=== PATIENT | female | born 1955 | race Caucasian/White ===

== ENCOUNTER 2025-04-22 09:23 | Emergency (ER) | payer OTHER ==
--- OUTSIDE RECORDS SUMMARY | 2025-04-22 09:27 | XMS REPORT | Continuity of Care Document ---
Author Name Unknown Address [address] [facility] [address] [place] [address] [facility] Address [address] [facility]. 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 Role Phone ROBERT WILHELM Primary Care Physician MACY Dong Attending Clinician Unavailable RADIOLOGY Attending Clinician Unavailable Radiology Attending Clinician Unavailable Doctor Unassigned, [place] Attending Clinician U MAGDALENA Lisa Attending Clinician Unavailable Payers Payer Name Policy Type Policy Number Effective Date Expirati on Date Source [facility] OUT OF STATE [id number] 2020 00:00:00 Allergies, Adverse Reactions, Alerts Allergy Name Allergy Type Status Severity Reaction(s) Onset Date Inactive Date Treating Clinician Comments Source NO KNOWN ALLERGIE S Drug Class Active [facility] Social History Social Habit Start Date Stop Date Quantity Comments Source Sex Assigned At 1955 00:00:00 1955 00:00:00 [facility] Smoking Status Start Date Stop Date Source Unknown if ever smoked [facility] Procedures Procedure Date / Time Performed Performing Clinicia n Source DEXA AXIAL (HIP AND SPINE) 2021-12-24 14:45:41 Requisition, Paper [facility] ASSIGNMENT OF BENEFITS 2021-12-24 14:15:02 Docto r Unassigned, [place] [facility] Encounters Start Date/Time End Date/Time Encounter Type Admission Type Attending Clinicians Care Facility Care Department Encounter ID Source 2023-02-02 08:37:00 Outpatient [facility] [id number] [facility] 2023-02-02 09:30:00 2023-02-02 09:30:00 Outpatient MACY SEN [facility] [id number] [facility] 2021-12-24 09:18:57 2021-12-24 23:59:00 Outpatient R RADIOLOGY [facility] [id number] [facility] 2021-12-24 09:18:57 2021-12-24 23:59:00 Hospital Encounter Radiology [facility] [id number] [facility] 2021-12-24 09:17:31 2021-12-24 09:17:31 Hospital Encounter Radiology [facility] [id number] [facility] 2021-12-24 00:00:00 2021-12-24 00:00:00 Orders Only Doctor Unassigned, [place] [facility] [id number] [facility] 2020-10-18 12:25:00 2020-10-18 12:25:00 Outpatient MAGDALENA DURON [facility] [id number] [facility] 2020-09-20 13:05:00 2020-09-20 13:05:00 Outpatient MAGDALENA DURON [facility] [id number] [facility] 2020-01-29 00:00:00 2020-01-29 00:00:00 Outpatient R RADIOLOGY [facility] [id number] [facility]
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
--- NOTE | 2025-04-22 10:01 | RAD REPORT ---
EXAMINATION: Tib Fib Left CLINICAL INDICATION: Leg pain FINDINGS: No fracture seen. Mild lateral soft tissue swelling below the knee.
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
[2025-04-22 10:33] VITALS: TEMP 98.3
[2025-04-22 10:34] VITALS: BP 133/90; O2SAT 96
== END 2025-04-22 10:28 | disposition home or self-care (01) ==
LOC: ER 09:23
DX: S00.33XA Contusion of nose, initial encounter (principal); S80.12XA Contusion of left lower leg, initial encounter; V49.49XA Driver injured in collision with other motor vehicles in traffic accident, initial encounter
CPT/HCPCS: 70486; 76377; 99282